=== PATIENT | female | born 1930 | race Caucasian/White ===

== ENCOUNTER 2017-05-16 12:06 | Emergency (ER) | payer MEDICARE ==
[~2017-05-16] VITALS: Ht 162.6 cm; Wt 79.4 kg
[2017-05-16 14:45] LABS: BILIRUBIN,URINE 1+ (NEGATIVE); KETONES,URINE NEGATIVE (NEGATIVE); LEUKOCYTE ESTERASE ,URINE NEGATIVE (NEGATIVE); NITRITE,URINE NEGATIVE (NEGATIVE); URINE UROBILINOGEN 4 mg/dL (0.2 - 1)
[2017-05-16 15:09] LABS: PROTEIN,URINE DIPSTICK 1+ (NEGATIVE)
[2017-05-16 15:10] LABS: CLARITY,URINE CLOUDY (CLEAR); COLOR,URINE YELLOW (YELLOW)
[2017-05-16 15:18] LABS: EPITHELIAL CELLS,URINE MANY /LPF
[2017-05-16 15:19] LABS: TRANSITIONAL EPI CELLS,URINE FEW; WBC,URINE (MAN) 0-5 /HPF (0-5)
== END 2017-05-16 17:24 | disposition left against medical advice (07) ==
LOC: ER 12:06
DX: Z04.3 Encounter for examination and observation following other accident (principal)
CPT/HCPCS: 81001; 87086